=== PATIENT | male | born 1980 | race Caucasian/White ===

== ENCOUNTER 2020-04-16 01:48 | Emergency (ER) | payer SELFPAY ==
[~2020-04-16] VITALS: Ht 165.1 cm; Wt 82.0 kg
[2020-04-16 01:54] VITALS: BP 135/92
[2020-04-16 03:15] LABS: CLARITY URINE CLOUDY (CLEAR); COLOR URINE DK YELLOW (YELLOW); KETONES URINE NEGATIVE (NEGATIVE); LEUKOCYTE ESTERASE URINE NEGATIVE (NEGATIVE); NITRITE URINE NEGATIVE (NEGATIVE); OCCULT BLOOD URINE 3+ (NEGATIVE); PROTEIN URINE 1+ (NEGATIVE); SPECIFIC GRAVITY URINE 1.028 (1.005-1.030)
[2020-04-16] MEDS ORDERED: KETOROLAC 30MG/ML VIAL IM ONE (03:15)
== END 2020-04-16 05:39 | disposition home or self-care (01) ==
LOC: ER 01:58
DX: N50.812 Left testicular pain (principal); N23 Unspecified renal colic; R31.9 Hematuria, unspecified
CPT/HCPCS: 76870; 81003; 93976; 96372; 99284; J1885